=== PATIENT | male | born 1980 | race Caucasian/White ===

== ENCOUNTER 2020-06-16 22:40 | Emergency (ER) | payer SELFPAY ==
[2020-06-16 22:40] VITALS: BP 131/70; PULSE 111; RESP 18; TEMP 36.6; O2SAT 96; BMI 33.3
--- NOTE | 2020-06-16 22:51 | ED.VIS.GEN ---
History of Present Illness Chief Complaint: Cough Informant: Patient Onset: Days Context: Gradual Onset Timing: Continuous Current Severity: Moderate Maximum Severity: Moderate Narrative: The patient is a 39-year-old male who is otherwise healthy the presents to the emergency department with upper respiratory symptoms. Patient states that about 7 days ago, he had a scant cough, nausea, and myalgias. He states over the past 3 days, his symptoms have worsened. He states sometimes he gets into coughing fits. He also has generalized body aches. He denies any significant fever. He has no history of immunosuppression. He cannot recall any specifics sick contacts. He has no history of underlying lung disease. He is been taking ibuprofen and Tylenol with some improvement. He is otherwise been in his normal state of health. Prior similar symptoms: No Recent Illness/Hospitalization: No Past Medical History - Allergies and Home Meds Allergies/Adverse Reactions: Allergies No Known Allergies Allergy (Verified 06/16/20 22:43) Primary Care Physician: NOT,DEFINED [NON-STAFF] - Prior records reviewed: Yes Past Medical History: None Surgical History: noncontributory Smoking Status: Never smoker Review of Systems General: Reports: Chills, Malaise. Denies: Fever, Sweats Eyes: Denies: Visual changes - bilaterally, Diplopia ENT: Denies: Rhinorrhea, Sore throat Cardiovascular: Denies: Chest pain, Palpitations Respiratory: Reports: Cough. Denies: Dyspnea, Dyspnea on exertion Gastrointestinal: Reports: Nausea, Diarrhea. Denies: Abdominal pain, Vomiting, Melena, Hematochezia Genitourinary: Denies: Dysuria, Hematuria, Frequency Musculoskeletal: Denies: Back pain, Extremity Pain Skin: Denies: Rash, Wounds Neurological: Denies: Headache, Weakness, Numbness Physical Exam Vital Signs/Narrative: Vital Signs Temp Pulse Resp BP Pulse Ox 06/16/20 22:40 97.9 F 111 H 18 131/70 H 96 Inital Vital Signs reviewed: Yes General: Well nourished, Well developed, No Acute Distress Head: Normocephalic, Atraumatic Eyes: Perrl, EOMI ENT: Moist mucous membranes, No rhinorrhea Neck: Supple, Nontender Cardiovascular: Regular rate, Regular rhythm, No murmurs Respiratory: No distress, Chest nontender, Wheezing Abdomen: Soft, Nontender, Nondistended, Normal bowel sounds Back: Nontender, Normal Inspection Extremities: Nontender, No edema Skin: Normal color, No rash Neurological: Alert, Oriented x3, Cranial nerves II-XII grossly intact, Normal Strength, Normal Sensation Psychological: Normal affect, Normal Mood Diagnostic/Tx/Re-eval Chest X-Ray - ED: 1 View, Read by ED Physician, Normal, Heart, Lungs, Mediastinum Clinical Impression(s) from Imaging Studies Chest X-Ray 06/16/20 23:06 IMPRESSION: Normal x-ray examination of the chest. Electronically Signed: Roselyn Meyers MD at 23:24 EST , Service support , - Medical Decision Making The patient has mild symptoms that are consistent with COVID-19. However, he had symptoms for a week. I do not feel that antigen testing would be appropriate. Chest x-ray was obtained. Patient was given an inhaler. Send out PCR was obtained. The patient is not hypoxic, or tachypneic. I do feel that he is safe for outpatient therapy. He was counseled on handwashing and quarantining. Patient will be discharged home. Impression 1. Viral illness ED Disposition - Plan for ED Patient: Instructions: Coronavirus Disease 2019 (COVID-19): Overview Referrals: NOT,DEFINED [NON-STAFF] -
[2020-06-16 22:57] VITALS: O2SAT 96
--- NOTE | 2020-06-16 23:06 | RAD_ITS ---
STUDY: X-RAY CHEST REASON FOR EXAM: Male, 39 years old. COUGH,MARTINEZ,ACHES AND PAIN,DIZZINESS. TECHNIQUE: 1 view COMPARISON: None. FINDINGS: The lungs are clear and expanded. There is no demonstrated pleural abnormality. Normal size heart. Normal mediastinum and jordy. Normal visualized pulmonary arteries. Normal visualized aortic arch and descending thoracic aorta. Normal visualized thoracic spine. Normal visualized ribs, clavicles, and shoulders. There is no demonstrated abnormality of the visualized soft tissue structures of the upper abdomen. RAD/Chest 1 View (Portable) IMPRESSION: Normal x-ray examination of the chest. Electronically Signed: Roselyn Meyers MD at 23:24 EST , Service support ,
== END 2020-06-16 23:36 | disposition home or self-care (01) ==
LOC: ED 23:17
PROVIDERS: Emergency Provider Emergency Medicine
DX: B34.9 Viral infection, unspecified (principal); R05 Cough; R11.0 Nausea; M79.10 Myalgia, unspecified site
CPT/HCPCS: 71045; 87635; 99282; U0003